=== PATIENT | male | born 1995 | race Caucasian/White ===

== ENCOUNTER 2025-04-16 20:29 | Emergency (ER) | payer OTHER | END 2025-04-16 22:25 | disposition home or self-care (01) | LOC: VM.ED 20:29 | DX: S13.4XXA Sprain of ligaments of cervical spine, initial encounter (principal); Z88.5 Allergy status to narcotic agent; Z79.899 Other long term (current) drug therapy; V89.2XXA Person injured in unspecified motor-vehicle accident, traffic, initial encounter | CPT/HCPCS: 72125; 72128; 73060-RT; 99284 ==